=== PATIENT | male | born 1990 | race Caucasian/White ===

== ENCOUNTER 2022-08-05 15:36 | Emergency (ER) | payer OTHER ==
[~2022-08-05] VITALS: Ht 167.6 cm; Wt 80.0 kg
[~2022-08-05 15:36] MED LIST: BUPR1FIL3 SL; OXCA300T4 PO; PREG200C PO; SERT100T PO; TRAZ300T11 PO
[2022-08-05 15:39] VITALS: BP 151/97
== END 2022-08-05 18:10 | disposition left against medical advice (07) ==
LOC: ER 15:36
DX: Z53.21 Procedure and treatment not carried out due to patient leaving prior to being seen by health care provider (principal)

== ENCOUNTER 2022-08-05 18:10 | Emergency (ER) | payer OTHER ==
[~2022-08-05] VITALS: Ht 167.6 cm; Wt 77.0 kg
[2022-08-05 18:14] VITALS: BP 190/77
== END 2022-08-05 19:30 | disposition home or self-care (01) ==
LOC: ER 18:16
DX: F10.10 Alcohol abuse, uncomplicated (principal); Z88.8 Allergy status to other drugs, medicaments and biological substances; Z86.59 Personal history of other mental and behavioral disorders; Y90.9 Presence of alcohol in blood, level not specified
CPT/HCPCS: 99283